=== PATIENT | male | born 2005 | race Two or more races ===

== ENCOUNTER 2024-08-30 22:27 | Emergency (ER) | payer BC ==
[~2024-08-30] VITALS: Ht 175.3 cm; Wt 57.3 kg
[2024-08-30 23:13] VITALS: BP 124/68; PULSE 89; RESP 16; TEMP 97.7; O2SAT 97
[2024-08-30] MEDS ORDERED: cefTRIAXone SOD 1,000 MG VL IM ONE (23:45)
[2024-08-30] MEDS ORDERED: KETOROLAC TROMETH 60MG/2ML VIAL IM ONE (23:45)
== END 2024-08-31 00:10 | disposition left against medical advice (07) ==
LOC: ER 22:27
DX: K08.89 Other specified disorders of teeth and supporting structures (principal); Z53.21 Procedure and treatment not carried out due to patient leaving prior to being seen by health care provider